=== PATIENT | male | born 1980 | race Caucasian/White ===

== ENCOUNTER 2020-06-15 17:02 | Emergency (ER) | payer SELFPAY ==
[2020-06-15 17:20] VITALS: BP 136/88; PULSE 112; RESP 16; TEMP 36.7; O2SAT 97
--- NOTE | 2020-06-15 17:30 | DI.RAD_ITS ---
EXAM: XR ANKLE LT COMPLETE CLINICAL HISTORY: Left ankle injury. TECHNIQUE: 2D digital imaging was performed. COMPARISON: No exams were available for comparison FINDINGS: BONES: No acute fracture is present. No bony destructive lesion is seen. No talar dome defect. JOINTS: The ankle mortise is normally aligned. SOFT TISSUE: Marked soft tissue swelling beneath medial malleolus. No foreign body. No gas collecti on. IMPRESSION: Soft tissue swelling. DATA REPOSITORY: RADIATION DOSE DELIVERED:
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
--- NOTE | 2020-06-15 18:05 | DI.VRAD_ITS ---
PROCEDURE INFORMATION: Exam: XR Left Ankle Exam date and time: 06/15/2020 5:50 PM Age: 39 years old Clinical indication: Injury or trauma; Fall; Swelling (edema); Ankle; Right TECHNIQUE: Imaging protocol: XR Left ankle. Views: 3 or more views. COMPARISON: No relevant prior studies available. FINDINGS: Two views. Lateral view not included. Bones/joints: Normal. Soft tissues: Soft tissue swelling. IMPRESSION: Soft tissue swelling, especially about the medial malleolus. Dictated and Authenticated by: Suri Savage MD. Ordering:ROSHNI Degroot MD
[2020-06-15] MEDS: Ibuprofen 600 MG TAB PO (18:20)
== END 2020-06-15 19:25 | disposition home or self-care (01) ==
PROVIDERS: Emergency Provider Registered Nurse Emergency
DX: S93.492A Sprain of other ligament of left ankle, initial encounter (principal); W17.81XA Fall down embankment (hill), initial encounter
CPT/HCPCS: 29515; 99283; 73610